=== PATIENT | female | born 1940 | race Caucasian/White ===

== ENCOUNTER 2022-01-14 22:14 | Emergency (ER) | payer MEDICARE, OTHER ==
[~2022-01-14] VITALS: Ht 157.5 cm; Wt 70.3 kg
[2022-01-14 22:18] VITALS: BP 173/106
[2022-01-14] MEDS ORDERED: MORPHINE SULFATE 4 MG/ML SYR IVP ONE (23:10)
[2022-01-14 23:28] LABS: BASOPHILS % (AUTO) 0.3 % (0.0-2.0); EOSINOPHILS % (AUTO) 0.6 % (0.0-4.0); HEMATOCRIT 32.6 % (36-48); HEMOGLOBIN 10.8 g/dL (12.0-16.0); LYMPHOCYTES # (AUTO) 1.1 K/uL (2.5-16.5); LYMPHOCYTES % (AUTO) 19.7 % (20.5-51.1); MEAN CORPUSCULAR HEMOGLOBIN 30 pg (27-31); MEAN CORPUSCULAR HGB CONC 33 g/dL (33-37); MEAN CORPUSCULAR VOLUME 89.3 fL (80-94); MONOCYTES # (AUTO) 0.4 K/uL (0.8-1.0); MONOCYTES % (AUTO) 6.5 % (1.7-9.3); NEUTROPHILS # (AUTO) 4.2 K/uL (1.8-7.7); NEUTROPHILS % (AUTO) 72.9 % (42.2-75.2); PLATELET COUNT (AUTO) 207 K/uL (140-450); RED BLOOD CELL COUNT(AUTO) 3.65 MIL/uL (4.20-5.40); RED CELL DISTRIBUTION WIDTH 14.1 % (11.6-13.7); WHITE BLOOD COUNT (AUTO) 5.8 K/uL (4.8-10.8)
[2022-01-14 23:37] LABS: ALBUMIN 3.2 g/dL (3.4-5.0); ANION GAP 9.2 (8-16); CHLORIDE 104 mmol/L (98-107); CREATININE 0.9 mg/dL (0.6-1.3); GLUCOSE 119 mg/dL (74-106); POTASSIUM 4.2 mmol/L (3.5-5.1); SODIUM SERUM 138 mmol/L (136-145); UREA NITROGEN, BLOOD 25 mg/dL (7-18)
[2022-01-14 23:50] LABS: ASPARTATE AMINOTRANSFERASE 16 U/L (15-37); TOTAL BILIRUBIN 0.6 mg/dL (0.0-1.0)
[2022-01-15] MEDS ORDERED: MORPHINE SULFATE 4 MG/ML SYR IVP ONE ×3 (01:45→08:50)
[2022-01-15] MEDS ORDERED: MORPHINE SULFATE 4 MG/ML SYR ONE (04:51)
[2022-01-15] MEDS ORDERED: POTA8CAP4 PO (09:54)
[2022-01-15] MEDS ORDERED: FERR325E14 PO (09:54)
[2022-01-15] MEDS ORDERED: HYDROmorphone PFS 2 MG/ML SYR IVP ONE ×2 (11:05→15:55)
[2022-01-15] MEDS ORDERED: LIDOCAINE MPF 1% 10 MG/ML VIAL IM ONE (11:25)
[2022-01-15] MEDS ORDERED: LIDOCAINE MPF 1% 10 MG/ML VIAL INJ ONE (11:30)
[2022-01-15] MEDS ORDERED: ONDANSETRON 4 MG/2 ML VIAL ONE (11:35)
[2022-01-15] MEDS ORDERED: ONDANSETRON 4 MG/2 ML VIAL IVP ONE ×2 (11:35→15:55)
[2022-01-15 16:55] VITALS: BP 144/73
== END 2022-01-15 16:55 | disposition short-term general hospital (02) ==
LOC: MED 22:14
DX: S72.402A Unspecified fracture of lower end of left femur, initial encounter for closed fracture (principal); Z20.822 Contact with and (suspected) exposure to COVID-19; K21.9 Gastro-esophageal reflux disease without esophagitis; Z98.890 Other specified postprocedural states; I10 Essential (primary) hypertension; W18.39XA Other fall on same level, initial encounter; Y92.89 Other specified places as the place of occurrence of the external cause; Y93.89 Activity, other specified; Y99.8 Other external cause status
CPT/HCPCS: 36415; 64450; 71045; 73560; 80053; 84484; 85025; 87426; 87635; 93005; 96374; 96375; 96376; 99285; C9803; J1170; J2001; J2270; J2405

== ENCOUNTER 2022-03-31 09:38 | Emergency (ER) | payer MEDICARE ==
[~2022-03-31] VITALS: Ht 149.9 cm; Wt 61.7 kg
[~2022-03-31 09:38] MED LIST: FERR325E14 PO; POTA8CAP4 PO
--- NOTE | 2022-03-31 09:48 | NUR ---
W/C ASSISTED TO BED 8
--- NOTE | 2022-03-31 09:50 | NUR ---
DR. PANDEY BEDSIDE EVALUATING PATIENT
[2022-03-31 09:51] VITALS: BP 151/63
--- NOTE | 2022-03-31 10:18 | NUR ---
Note undone in EDM - 03/31/22 at 1150 by PHSEP 82YO FEMALE PT BIB DAUGHTER C/O INCREASING EDEMA X2 WEEKS. PT REPORTS EPISODES OF 8/10 PULSATING/ ACHING LEG PAIN LASTING 1- MIN ALSO ON TOUCH OR BEARING WEIGHT. PT PRESENTS W/ +1 NON PITTING EDEMA BELOW KNEES WITH SCAR NOTED ON KNEE IN L LEG. PT STATES SHE HAD SURGERY IN FEBRUARY DUE TO LEFT FEMUR FRACTURE AND HAS HAD NO COMPLICATIONS SINCE. STATES MILD RELIEF AFTER TAKING NORCO AND TYLENOL, DENIES TAKING TODAY. PT NON AMBULATORY AT THE TIME, NORMALLY USES WALKER AT HOME. DENIES N/V/D, SOB OR CHEST PAIN. PT AAOX4, NO VISBLE DISTRESS, RSPIRATIONS EVEN AND UNLABORED. DAUGHTER AT BEDSIDE HX" HTN, HIGH CHOLESTEROL, OSTEOPOROSIS, GERD NKA
--- NOTE | 2022-03-31 10:18 | NUR ---
82YO FEMALE PT BIB DAUGHTER C/O INCREASING EDEMA X2 WEEKS. PT REPORTS EPISODES OF 8/10 PULSATING/ ACHING LEG PAIN LASTING 1- MIN ALSO ON TOUCH OR BEARING WEIGHT. PT PRESENTS W/ +3 PITTING EDEMA BELOW KNEES WITH SCAR NOTED ON KNEE IN L LEG. PT STATES SHE HAD SURGERY IN FEBRUARY DUE TO LEFT FEMUR FRACTURE AND HAS HAD NO COMPLICATIONS SINCE. STATES MILD RELIEF AFTER TAKING NORCO AND TYLENOL, DENIES TAKING TODAY. PT NON AMBULATORY AT THE TIME, NORMALLY USES WALKER AT HOME. DENIES N/V/D, SOB OR CHEST PAIN. PT AAOX4, NO VISBLE DISTRESS, RSPIRATIONS EVEN AND UNLABORED. DAUGHTER AT BEDSIDE HX" HTN, HIGH CHOLESTEROL, OSTEOPOROSIS, GERD NKA
--- NOTE | 2022-03-31 10:32 | NUR ---
US AT BEDSIDE
[2022-03-31 11:21] VITALS: BP 128/49
--- NOTE | 2022-03-31 11:21 | NUR ---
Patient discharged with v/s stable. Written and verbal after care instructions FOR EDEMA given and explained. Patient verbalized understanding. Wheel Chair Assisted with by caregiver. All questions addressed prior to discharge. Advised to follow up with PMD.
--- NOTE | 2022-03-31 11:30 | NUR ---
The patient's care was reviewed and supervised by Vivian Nazario RN.
== END 2022-03-31 11:21 | disposition home or self-care (01) ==
LOC: MED 09:38
DX: R60.0 Localized edema (principal); I10 Essential (primary) hypertension; E78.00 Pure hypercholesterolemia, unspecified; M81.0 Age-related osteoporosis without current pathological fracture; K21.9 Gastro-esophageal reflux disease without esophagitis; I25.10 Atherosclerotic heart disease of native coronary artery without angina pectoris; Z98.890 Other specified postprocedural states
CPT/HCPCS: 93971; 99284; Q0092

== ENCOUNTER 2022-04-15 09:10 | Emergency (ER) | payer MEDICARE ==
[~2022-04-15] VITALS: Ht 149.9 cm; Wt 57.2 kg
[2022-04-15 09:55] VITALS: BP 148/71
--- NOTE | 2022-04-15 10:01 | NUR ---
STANLEY. HANDED ON RINE BRODIE.
--- NOTE | 2022-04-15 10:32 | NUR ---
Patient taken to xray via wheelchair
--- NOTE | 2022-04-15 11:26 | NUR ---
Patient wheelchair assisted to bed 5.
--- NOTE | 2022-04-15 11:42 | NUR ---
MD TELLO AT BEDSIDE FOR EVALUATION
[2022-04-15] MEDS ORDERED: KETOROLAC 60 MG/2 ML VIAL IM ONE (11:50)
[2022-04-15] MEDS ORDERED: IBUP-2213 PO (11:52)
[2022-04-15] MEDS ORDERED: CIPR500T4 PO (11:52)
[2022-04-15] MEDS ORDERED: ACET-8386 PO (11:52)
--- NOTE | 2022-04-15 11:55 | NUR ---
82YO FEMALE PT BIB GRANDAUGHTER C/O SHARP 9/10 LL BACK PAIN X3DAYS. PT STATES CONSTANT PAIN W/ MOST ON MOVEMENT. NOTES DECREASE IN URINE FREQUENCY. DENIES DYSURIA, N/V/D, CHEST PAIN OR SOB. NO VISIBLE INJURY IN BACK, NO TENDER TO TOUCH. PT AAOX4, NO VISIBLE DISTRESS. NON AMBULATORY AND USING WHEELCHAIR. GRANDDAUGHTER AT BEDSIDE HX:HTN, HLD, OSTEOPOROSIS, GASTRITIS NKA
[2022-04-15 12:28] VITALS: BP 128/3
--- NOTE | 2022-04-15 12:28 | NUR ---
Patient discharged with v/s stable. Written and verbal after care instructions FOR ACUTE BACK PAIN AND UTI given and explained. Patient alert, oriented and verbalized understanding of instructions. Wheel Chair Assisted with by caregiver. All questions addressed prior to discharge. ID band removed. Patient advised to follow up with PMD. Rx of HYDROCODONE, CIPRO AND IBUPROFEN given. Opportunity to ask questions provided and answered.
== END 2022-04-15 12:28 | disposition home or self-care (01) ==
LOC: MED 09:10
DX: N39.0 Urinary tract infection, site not specified (principal); M54.50 Low back pain, unspecified; K21.9 Gastro-esophageal reflux disease without esophagitis; I10 Essential (primary) hypertension; Z79.899 Other long term (current) drug therapy; Z98.890 Other specified postprocedural states
CPT/HCPCS: 72100; 81002; 96372; 99283; J1885